=== PATIENT | female | born 1980 | race Caucasian/White ===

== ENCOUNTER 2018-07-11 10:17 | Emergency (ER) | payer MEDICAID ==
[~2018-07-11] VITALS: Ht 160 cm; Wt 76.2 kg
[2018-07-11] MEDS ORDERED: LACTATED RINGERS 1,000 ML IV ONE (10:33)
--- NOTE | 2018-07-11 10:44 | ED Psychosocial ---
General Chief Complaint: Substance Abuse Stated Complaint: DRUG/ALCOHOL ABUSE Source: patient Exam Limitations: no limitations (JINNY LEDESMA MD) History of Present Illness Date Seen by Provider: Jul 11, 2018 Time Seen by Provider: 10:26 Initial Comments Here with report of alcohol and drug abuse and needing medical clearance for the addiction treatment center. Apparently she was clean for 130 days but started drinking last Monday and then has used methamphetamine and hydrocodone. Last use of drugs was yesterday. Last alcohol intake was this morning with 1 pint of whiskey. [facility] helping get her into the addiction treatment service program but needed medical clearance. Denies other injuries otherwise or other concerns. Timing/Duration: week, getting worse Severity: moderate, severe Associated Symptoms: anxiety (JINNY LEDESMA MD) Allergies and Home Medications Allergies Coded Allergies: Sulfa (Sulfonamide Antibiotics) (Verified Allergy, Unknown, 07/11/18) Patient Home Medication List Home Medication List Reviewed: Yes (JINNY LEDESMA MD) Review of Systems Constitutional: see HPI; No chills, No fever EENTM: no symptoms reported Respiratory: no symptoms reported Cardiovascular: No edema, No palpitations Gastrointestinal: No abdominal pain, No nausea, No vomiting Genitourinary: no symptoms reported Musculoskeletal: no symptoms reported Psychiatric/Neurological: See HPI, Anxiety, Emotional Problems (JINNY LEDESMA MD) Past Mlwdvpg-Tlsdzr-Vvbmpt Hx Past Med/Social Hx: Reviewed Nursing Past Med/Soc Hx (JINNY LEDESMA MD) Patient Social History Alcohol Use: Regular Use Alcohol Beverage of Choice: Whiskey Recreational Drug Use: Yes (methamphetamine and hydrocodone) Smoking Status: Current Everyday Smoker Recent Foreign Travel: No Contact w/Someone Who Travel: No (JINNY LEDESMA MD) Past Medical History Surgeries: Yes Orthopedic (brain injury/hematoma) Respiratory: No Cardiac: Yes Hypertension Reproductive Disorders: No Gastrointestinal: No Musculoskeletal: Yes Fractures Psychosocial: Yes Bipolar (JINNY LEDESMA MD) Family Medical History Reviewed and Corrections made (JINNY LEDESMA MD) Physical Exam Vital Signs - First Documented 07/11/18 10:24 Temp 97.1 Pulse 113 Resp 18 B/P (MAP) 171/114 (133) Pulse Ox 97 (CHIKA GODDARD APRN) Capillary Refill : (JINNY LEDESMA MD) Height, Weight, BMI Height: 5'3" Weight: 160lbs. oz. [id number]; BMI Method:Stated General Appearance: WD/WN, other (anxious) HEENT: PERRL/EOMI, pharynx normal Neck: full range of motion, supple Respiratory: lungs clear, normal breath sounds Cardiovascular: no murmur, tachycardia Gastrointestinal: non tender, soft Extremities: non-tender, normal inspection Neurologic/Psychiatric: alert, oriented x 3 Appearance/Memory: appropriate appearance, appropriate insight Behavior/Eye Contact: cooperative, good eye contact, normal speech Thoughts/Hallucinations: normal thought pattern, no apparent hallucination Skin: normal color, warm/dry (JINNY LEDESMA MD) Progress/Results/Core Measures Results/Orders Lab Results Laboratory Tests Test 07/11/18 10:39 07/11/18 11:06 07/11/18 12:45 Range/Units White Blood Count 12.8 H 4.3-11.0 10^3/uL Red Blood Count 4.06 L 4.35-5.85 10^6/uL Hemoglobin 12.7 11.5-16.0 G/DL Hematocrit 37 35-52 % Mean Corpuscular Volume 91 80-99 FL Mean Corpuscular Hemoglobin 31 25-34 PG Mean Corpuscular Hemoglobin Concent 35 32-36 G/DL Red Cell Distribution Width 15.2 H 10.0-14.5 % Platelet Count 540 H 130-400 10^3/uL Mean Platelet Volume 10.4 7.4-10.4 FL Neutrophils (%) (Auto) 43 42-75 % Lymphocytes (%) (Auto) 49 H 12-44 % Monocytes (%) (Auto) 7 0-12 % Eosinophils (%) (Auto) 1 0-10 % Basophils (%) (Auto) 1 0-10 % Neutrophils # (Auto) 5.5 1.8-7.8 X 10^3 Lymphocytes # (Auto) 6.3 H 1.0-4.0 X 10^3 Monocytes # (Auto) 0.8 0.0-1.0 X 10^3 Eosinophils # (Auto) 0.1 0.0-0.3 10^3/uL Basophils # (Auto) 0.1 0.0-0.1 10^3/uL Sodium Level 142 135-145 MMOL/L Potassium Level 3.3 L 3.6-5.0 MMOL/L Chloride Level 108 H 98-107 MMOL/L Carbon Dioxide Level 20 L 21-32 MMOL/L Anion Gap 14 5-14 MMOL/L Blood Urea Nitrogen 12 7-18 MG/DL Creatinine 0.76 0.60-1.30 MG/DL Estimat Glomerular Filtration Rate > 60 BUN/Creatinine Ratio 16 Glucose Level 92 70-105 MG/DL Calcium Level 9.3 8.5-10.1 MG/DL Corrected Calcium 9.0 8.5-10.1 MG/DL Total Bilirubin 0.4 0.1-1.0 MG/DL Aspartate Amino Transf (AST/SGOT) 22 5-34 U/L Alanine Aminotransferase (ALT/SGPT) 24 0-55 U/L Alkaline Phosphatase 64 40-136 U/L Total Protein 7.3 6.4-8.2 GM/DL Albumin 4.4 3.2-4.5 GM/DL Thyroid Stimulating Hormone (TSH) 0.99 0.35-4.94 UIU/ML Serum Test, Qualitative NEGATIVE NEGATIVE Salicylates Level < 5.0 L 5.0-20.0 MG/DL Acetaminophen Level < 10 L 10-30 UG/ML Serum Alcohol 197 H <10 MG/DL Urine Color YELLOW Urine Clarity CLEAR Urine pH 5 5-9 Urine Specific [place] 1.015 L 1.016-1.022 Urine Protein NEGATIVE NEGATIVE Urine Glucose (UA) NEGATIVE NEGATIVE Urine Ketones NEGATIVE NEGATIVE Urine Nitrite NEGATIVE NEGATIVE Urine Bilirubin NEGATIVE NEGATIVE Urine Urobilinogen NORMAL NORMAL MG/DL Urine Leukocyte Esterase NEGATIVE NEGATIVE Urine RBC (Auto) NEGATIVE NEGATIVE Urine RBC NONE /HPF Urine WBC NONE /HPF Urine Squamous Epithelial Cells 5-10 /HPF Urine Crystals NONE /LPF Urine Bacteria TRACE /HPF Urine Casts NONE /LPF Urine Mucus NEGATIVE /LPF Urine Culture Indicated NO Urine Opiates Screen NEGATIVE NEGATIVE Urine Oxycodone Screen NEGATIVE NEGATIVE Urine Methadone Screen NEGATIVE NEGATIVE Urine Propoxyphene Screen NEGATIVE NEGATIVE Urine Barbiturates Screen NEGATIVE NEGATIVE Ur Tricyclic Antidepressants Screen NEGATIVE NEGATIVE Urine Phencyclidine Screen NEGATIVE NEGATIVE Urine Amphetamines Screen POSITIVE H NEGATIVE Urine Methamphetamines Screen POSITIVE H NEGATIVE Urine Benzodiazepines Screen NEGATIVE NEGATIVE Urine Cocaine Screen NEGATIVE NEGATIVE Urine Cannabinoids Screen NEGATIVE NEGATIVE (CHIKA GODDARD APRN) Medications Given in ED Current Medications Medications Dose Ordered Sig/Ramos Route Start Time Stop Time Status Last Admin Dose Admin Hydrochlorothiazide 12.5 mg ONCE ONCE PO 07/11/18 11:30 07/11/18 11:31 DC 07/11/18 11:41 12.5 MG Lactated Ringer's 1,000 ml @ 0 mls/hr Q0M ONCE IV 07/11/18 10:33 07/11/18 10:35 DC 07/11/18 11:14 0 MLS/HR Lisinopril 10 mg ONCE ONCE PO 07/11/18 11:30 07/11/18 11:31 DC 07/11/18 11:41 10 MG (CHIKA GODDARD APRN) Vital Signs/I&O 07/11/18 07/11/18 10:24 11:45 Temp 97.1 Pulse 113 105 Resp 18 B/P (MAP) 171/114 (133) 144/113 (123) Pulse Ox 97 (CHIKA GODDARD APRN) Progress Progress Note : Progress Note Seen and evaluated. IV, labs, UA, EKG and normal saline 1 L bolus ordered. (JINNY LEDESMA MD) Initial ECG Impression Date: Jul 11, 2018 Initial ECG Impression Time: 10:52 Initial ECG Rate: 94 Initial ECG Rhythm: Normal Sinus Initial ECG Impression: Normal Initial ECG Comparisson: No Previous ECG Available Comment Sinus rhythm with normal axis. No evidence of ST elevation CT. No previous available for comparison. Interpreted by me. (JINNY LEDESMA MD) Departure Impression Primary Impression: Alcoholism Disposition: 01 HOME, SELF-CARE Condition: Stable Departure-Patient Inst. Decision time for Depature: 13:25 (CHIKA GODDARD APRN) Referrals: LEA ANNE APRN (PCP) Primary Care Physician [facility] (Family) Primary Care Physician Patient Instructions: ALCOHOL AND SUBSTANCE ABUSE Add. Discharge Instructions: 1. Continue with treatment plan at the addiction treatment Center. All discharge instructions reviewed with patient and/or family. Voiced understanding. JINNY LEDESMA MD Jul 11, 2018 10:43 CHIKA GODDARD APRN Jul 11, 2018 13:26
[2018-07-11 10:50] LABS: BASOPHILS # (AUTO) 0.1 10^3/uL (0.0-0.1); BASOPHILS % (AUTO) 1 % (0-10); EOSINOPHILS # (AUTO) 0.1 10^3/uL (0.0-0.3); EOSINOPHILS % (AUTO) 1 % (0-10); HEMATOCRIT 37 % (35-52); HEMOGLOBIN 12.7 G/DL (11.5-16.0); LYMPHOCYTES # (AUTO) 6.3 X 10^3 (1.0-4.0); LYMPHOCYTES % (AUTO) 49 % (12-44); MEAN CORPUSCULAR HEMOGLOBIN 31 PG (25-34); MEAN CORPUSCULAR HGB CONC 35 G/DL (32-36); MEAN CORPUSCULAR VOLUME 91 FL (80-99); MEAN PLATELET VOLUME 10.4 FL (7.4-10.4); MONOCYTES # (AUTO) 0.8 X 10^3 (0.0-1.0); MONOCYTES % (AUTO) 7 % (0-12); NEUTROPHILS # (AUTO) 5.5 X 10^3 (1.8-7.8); NEUTROPHILS % (AUTO) 43 % (42-75); PLATELET COUNT 540 10^3/uL (130-400); RED CELL DISTRIBUTION WIDTH 15.2 % (10.0-14.5); WHITE BLOOD COUNT 12.8 10^3/uL (4.3-11.0)
[2018-07-11] MEDS ORDERED: CETIRIZINE 10 MG (11:29)
[2018-07-11] MEDS ORDERED: TRAZODONE TAB 100MG (11:29)
[2018-07-11] MEDS ORDERED: TABL (11:29)
[2018-07-11] MEDS ORDERED: LISINOPRIL HCTZ (11:29)
[2018-07-11] MEDS ORDERED: ESCITALOPRAM 20 MG (11:29)
[2018-07-11] MEDS ORDERED: lisINopril 10 MG (PRINIVIL) TABLET PO ONE (11:30)
[2018-07-11] MEDS ORDERED: HYDROCHLOROTHIAZIDE 12.5 MG (HCTZ) CAP PO ONE (11:30)
[2018-07-11 11:40] LABS: ALANINE AMINOTRANSFERASE 24 U/L (0-55); ALBUMIN 4.4 GM/DL (3.2-4.5); ALKALINE PHOSPHATASE 64 U/L (40-136); BILIRUBIN,TOTAL 0.4 MG/DL (0.1-1.0); BUN/CREATININE RATIO 16; CALCIUM 9.3 MG/DL (8.5-10.1); CARBON DIOXIDE 20 MMOL/L (21-32); CHLORIDE 108 MMOL/L (98-107); CREATININE SERUM 0.76 MG/DL (0.60-1.30); GFR ESTIMATED > 60; GLUCOSE 92 MG/DL (70-105); POTASSIUM 3.3 MMOL/L (3.6-5.0); SALICYLATE < 5.0 MG/DL (5.0-20.0); SODIUM 142 MMOL/L (135-145); TOTAL PROTEIN 7.3 GM/DL (6.4-8.2)
[2018-07-11 11:45] VITALS: BP 144/113
[2018-07-11 11:46] LABS: ACETAMINOPHEN < 10 UG/ML (10-30)
[2018-07-11 13:00] LABS: BILIRUBIN,URINE NEGATIVE (NEGATIVE); CLARITY,URINE CLEAR; COLOR,URINE YELLOW; GLUCOSE, URINE (UA) NEGATIVE (NEGATIVE); KETONES,URINE NEGATIVE (NEGATIVE); LEUKOCYTE ESTERASE ,URINE NEGATIVE (NEGATIVE); NITRITE,URINE NEGATIVE (NEGATIVE); PH,URINE 5 (5-9); PROTEIN,URINE NEGATIVE (NEGATIVE); UROBILINOGEN,URINE NORMAL (NORMAL)
[2018-07-11 13:09] LABS: BACTERIA,URINE TRACE /HPF
[2018-07-11 13:13] LABS: AMPHETAMINE SCREEN, URINE POSITIVE (NEGATIVE); BARBITURATE SCREEN URINE NEGATIVE (NEGATIVE); BENZODIAZEPINES SCREEN URINE NEGATIVE (NEGATIVE); CANNABINOID SCREEN, URINE NEGATIVE (NEGATIVE); COCAINE SCREEN URINE NEGATIVE (NEGATIVE); METHADONE STAT NEGATIVE (NEGATIVE); METHAMPHETAMINE SCREEN URINE S POSITIVE (NEGATIVE); OPIATE SCREEN URINE NEGATIVE (NEGATIVE); OXYCODONE STAT NEGATIVE (NEGATIVE); PROPOXYPHENE STAT NEGATIVE (NEGATIVE); TRICYCLIC ANTIDEPRESSANTS SCRE NEGATIVE (NEGATIVE)
[2018-07-11 13:32] VITALS: BP 132/87
== END 2018-07-11 13:32 | disposition home or self-care (01) ==
LOC: EDUNIT# 10:17 → ER 10:18
DX: F10.20 Alcohol dependence, uncomplicated (principal); I10 Essential (primary) hypertension; F31.9 Bipolar disorder, unspecified; F15.10 Other stimulant abuse, uncomplicated; F17.210 Nicotine dependence, cigarettes, uncomplicated; Z87.820 Personal history of traumatic brain injury; Z88.2 Allergy status to sulfonamides
CPT/HCPCS: 36415; 80053; 80306; 80320; 80329; 81000; 84443; 84703; 85025; 93005; 93041

== ENCOUNTER 2018-08-09 22:42 | Observation (INO) | payer MEDICAID | END 2018-08-12 12:50 | disposition home or self-care (01) | LOC: ICU 08-10 02:45 → ER 22:42 → 4TH 08-10 07:59 ==

== ENCOUNTER 2018-09-27 18:34 | Emergency (ER) | payer MEDICAID, OTHER ==
[~2018-09-27] VITALS: Ht 160 cm; Wt 72.6 kg
[~2018-09-27 18:34] MED LIST: ALBU18HF2 INH; CETI10TA17 PO; CETIRIZINE 10 MG; ESCI20TA45 PO; ESCITALOPRAM 20 MG; HYDR50TA76 PO; LISI1TAB6 PO; LISINOPRIL HCTZ; TABL; TRAZ-190 PO; TRAZODONE TAB 100MG
[2018-09-27] MEDS ORDERED: NS IV 1000 ML 1,000 ML IV SCH (18:45)
[2018-09-27 19:00] LABS: BASOPHILS % (AUTO) 0 % (0-10); EOSINOPHILS # (AUTO) 0.2 10^3/uL (0.0-0.3); EOSINOPHILS % (AUTO) 2 % (0-10); HEMATOCRIT 34 % (35-52); HEMOGLOBIN 11.1 G/DL (11.5-16.0); LYMPHOCYTES # (AUTO) 2.8 X 10^3 (1.0-4.0); LYMPHOCYTES % (AUTO) 34 % (12-44); MEAN CORPUSCULAR HEMOGLOBIN 29 PG (25-34); MEAN CORPUSCULAR HGB CONC 32 G/DL (32-36); MEAN CORPUSCULAR VOLUME 90 FL (80-99); MEAN PLATELET VOLUME 9.5 FL (7.4-10.4); MONOCYTES # (AUTO) 0.9 X 10^3 (0.0-1.0); MONOCYTES % (AUTO) 11 % (0-12); NEUTROPHILS # (AUTO) 4.3 X 10^3 (1.8-7.8); NEUTROPHILS % (AUTO) 52 % (42-75); PLATELET COUNT 333 10^3/uL (130-400); RED CELL DISTRIBUTION WIDTH 16.2 % (10.0-14.5); WHITE BLOOD COUNT 8.2 10^3/uL (4.3-11.0)
[2018-09-27 19:20] LABS: BILIRUBIN,URINE NEGATIVE (NEGATIVE); CLARITY,URINE CLEAR; COLOR,URINE YELLOW; GLUCOSE, URINE (UA) NEGATIVE (NEGATIVE); KETONES,URINE NEGATIVE (NEGATIVE); LEUKOCYTE ESTERASE ,URINE 1+ (NEGATIVE); NITRITE,URINE NEGATIVE (NEGATIVE); PH,URINE 7 (5-9); PROTEIN,URINE NEGATIVE (NEGATIVE); UROBILINOGEN,URINE NORMAL (NORMAL)
[2018-09-27 19:25] LABS: ALANINE AMINOTRANSFERASE 17 U/L (0-55); BILIRUBIN,TOTAL 0.2 MG/DL (0.1-1.0); BUN/CREATININE RATIO 15; CALCIUM 8.9 MG/DL (8.5-10.1); CARBON DIOXIDE 23 MMOL/L (21-32); CHLORIDE 105 MMOL/L (98-107); CREATININE SERUM 0.74 MG/DL (0.60-1.30); GFR ESTIMATED > 60; GLUCOSE 92 MG/DL (70-105); SALICYLATE < 5.0 MG/DL (5.0-20.0); SODIUM 139 MMOL/L (135-145); TOTAL PROTEIN 6.6 GM/DL (6.4-8.2)
[2018-09-27 19:27] LABS: ACETAMINOPHEN < 10 UG/ML (10-30)
[2018-09-27 19:30] LABS: WBC,URINE 0-2 /HPF
[2018-09-27 19:31] LABS: BACTERIA,URINE TRACE /HPF
[2018-09-27 19:36] LABS: AMPHETAMINE SCREEN, URINE POSITIVE (NEGATIVE); BARBITURATE SCREEN URINE NEGATIVE (NEGATIVE); BENZODIAZEPINES SCREEN URINE NEGATIVE (NEGATIVE); CANNABINOID SCREEN, URINE NEGATIVE (NEGATIVE); METHADONE STAT NEGATIVE (NEGATIVE); OPIATE SCREEN URINE NEGATIVE (NEGATIVE); OXYCODONE STAT NEGATIVE (NEGATIVE); PROPOXYPHENE STAT NEGATIVE (NEGATIVE); TRICYCLIC ANTIDEPRESSANTS SCRE NEGATIVE (NEGATIVE)
[2018-09-27 19:37] LABS: COCAINE SCREEN URINE NEGATIVE (NEGATIVE); METHAMPHETAMINE SCREEN URINE S POSITIVE (NEGATIVE)
[2018-09-27 19:37] LABS: ALKALINE PHOSPHATASE 81 U/L (40-136)
--- NOTE | 2018-09-27 19:43 | ED Psychosocial ---
General Chief Complaint: Substance Abuse Stated Complaint: WITHDRAWL Nursing Triage Note: pt verbalized sweaty and shakey. states usually drinks 2 pints of vodka a day, states drank half pint vodka today Source: patient Exam Limitations: no limitations History of Present Illness Date Seen by Provider: Sep 27, 2018 Time Seen by Provider: 18:40 Initial Comments 37-year-old female who was brought to the emergency room by [facility] for complaints of withdrawing off of vodka. She reports that she normally drinks 2 pints of vodka per day but has only drank half a pint today. She reports for the past week she's been having thoughts of suicide drinking heavily but ran out of vodka today and reports that she started to become shaky and sweating. She denies having a plan to end her life but reports that she has a long history of mental health, stopped taking her Lexapro, reports that she's tried to cut her wrists in the past. Timing/Duration: just prior to arrival Associated Symptoms: suicidal ideation Allergies and Home Medications Allergies Coded Allergies: Sulfa (Sulfonamide Antibiotics) (Verified Allergy, Unknown, 09/27/18) Patient Home Medication List Home Medication List Reviewed: Yes Review of Systems Constitutional: see HPI; No chills, No fever Psychiatric/Neurological: See HPI, Emotional Problems All Other Systems Reviewed Negative Unless Noted: Yes Past Nyznmed-Vfdilz-Axlnbf Hx Past Med/Social Hx: Reviewed Nursing Past Med/Soc Hx Patient Social History Recent Foreign Travel: No Contact w/Someone Who Travel: No Recent Infectious Disease Expo: No Family Medical History Reviewed Nursing Family Hx Physical Exam Vital Signs - First Documented 09/27/18 18:39 Temp 98.0 Pulse 117 Resp 18 B/P (MAP) 118/110 (113) Pulse Ox 98 O2 Delivery Room Air Capillary Refill : Less Than 3 Seconds Height, Weight, BMI Height: 5'3.00" Weight: 160lbs. oz. [id number]; BMI Method:Stated General Appearance: WD/WN, no apparent distress HEENT: PERRL/EOMI, normal ENT inspection, TMs normal, pharynx normal Respiratory: chest non-tender, lungs clear, normal breath sounds, no respiratory distress, no accessory muscle use, respiratory distress Cardiovascular: normal peripheral pulses, regular rate, rhythm, no edema, no gallop, no JVD, no murmur Extremities: normal capillary refill Neurologic/Psychiatric: alert, normal mood/affect, oriented x 3 Appearance/Memory: appropriate appearance, appropriate insight, neat Behavior/Eye Contact: cooperative, good eye contact, normal speech Thoughts/Hallucinations: normal thought pattern, no apparent hallucination Skin: normal color, warm/dry Progress/Results/Core Measures Results/Orders Lab Results Laboratory Tests Test 09/27/18 18:50 09/27/18 19:15 Range/Units White Blood Count 8.2 4.3-11.0 10^3/uL Red Blood Count 3.80 L 4.35-5.85 10^6/uL Hemoglobin 11.1 L 11.5-16.0 G/DL Hematocrit 34 L 35-52 % Mean Corpuscular Volume 90 80-99 FL Mean Corpuscular Hemoglobin 29 25-34 PG Mean Corpuscular Hemoglobin Concent 32 32-36 G/DL Red Cell Distribution Width 16.2 H 10.0-14.5 % Platelet Count 333 130-400 10^3/uL Mean Platelet Volume 9.5 7.4-10.4 FL Neutrophils (%) (Auto) 52 42-75 % Lymphocytes (%) (Auto) 34 12-44 % Monocytes (%) (Auto) 11 0-12 % Eosinophils (%) (Auto) 2 0-10 % Basophils (%) (Auto) 0 0-10 % Neutrophils # (Auto) 4.3 1.8-7.8 X 10^3 Lymphocytes # (Auto) 2.8 1.0-4.0 X 10^3 Monocytes # (Auto) 0.9 0.0-1.0 X 10^3 Eosinophils # (Auto) 0.2 0.0-0.3 10^3/uL Basophils # (Auto) 0.0 0.0-0.1 10^3/uL Sodium Level 139 135-145 MMOL/L Potassium Level 3.0 L 3.6-5.0 MMOL/L Chloride Level 105 98-107 MMOL/L Carbon Dioxide Level 23 21-32 MMOL/L Anion Gap 11 5-14 MMOL/L Blood Urea Nitrogen 11 7-18 MG/DL Creatinine 0.74 0.60-1.30 MG/DL Estimat Glomerular Filtration Rate > 60 BUN/Creatinine Ratio 15 Glucose Level 92 70-105 MG/DL Calcium Level 8.9 8.5-10.1 MG/DL Corrected Calcium 8.9 8.5-10.1 MG/DL Total Bilirubin 0.2 0.1-1.0 MG/DL Aspartate Amino Transf (AST/SGOT) 23 5-34 U/L Alanine Aminotransferase (ALT/SGPT) 17 0-55 U/L Alkaline Phosphatase 81 40-136 U/L Total Protein 6.6 6.4-8.2 GM/DL Albumin 4.0 3.2-4.5 GM/DL Salicylates Level < 5.0 L 5.0-20.0 MG/DL Acetaminophen Level < 10 L 10-30 UG/ML Serum Alcohol 17 H <10 MG/DL Urine Color YELLOW Urine Clarity CLEAR Urine pH 7 5-9 Urine Specific [place] 1.005 L 1.016-1.022 Urine Protein NEGATIVE NEGATIVE Urine Glucose (UA) NEGATIVE NEGATIVE Urine Ketones NEGATIVE NEGATIVE Urine Nitrite NEGATIVE NEGATIVE Urine Bilirubin NEGATIVE NEGATIVE Urine Urobilinogen NORMAL NORMAL MG/DL Urine Leukocyte Esterase 1+ H NEGATIVE Urine RBC (Auto) 5+ H NEGATIVE Urine RBC NONE /HPF Urine WBC 0-2 /HPF Urine Squamous Epithelial Cells 2-5 /HPF Urine Crystals NONE /LPF Urine Bacteria TRACE /HPF Urine Casts NONE /LPF Urine Mucus NEGATIVE /LPF Urine Culture Indicated NO Urine Test NEGATIVE NEGATIVE Urine Opiates Screen NEGATIVE NEGATIVE Urine Oxycodone Screen NEGATIVE NEGATIVE Urine Methadone Screen NEGATIVE NEGATIVE Urine Propoxyphene Screen NEGATIVE NEGATIVE Urine Barbiturates Screen NEGATIVE NEGATIVE Ur Tricyclic Antidepressants Screen NEGATIVE NEGATIVE Urine Phencyclidine Screen NEGATIVE NEGATIVE Urine Amphetamines Screen POSITIVE H NEGATIVE Urine Methamphetamines Screen POSITIVE H NEGATIVE Urine Benzodiazepines Screen NEGATIVE NEGATIVE Urine Cocaine Screen NEGATIVE NEGATIVE Urine Cannabinoids Screen NEGATIVE NEGATIVE My Orders Orders - SERGIO KILLIAN Ua Culture If Indicated (09/27/18 18:43) Cbc With Automated Diff (09/27/18 18:43) Comprehensive Metabolic Panel (09/27/18 18:43) Alcohol (09/27/18 18:43) Drug Screen Stat (Urine) (09/27/18 18:43) Acetaminophen (09/27/18 18:43) Salicylate (09/27/18 18:43) Ekg Tracing (09/27/18 18:43) Ed Iv/Invasive Line Start (09/27/18 18:43) Monitor-Rhythm Ecg Trace Only (09/27/18 18:43) Ed Iv/Invasive Line Start (09/27/18 18:43) Ns Iv 1000 Ml (Sodium Chloride 0.9%) (09/27/18 18:45) Hcg,Qualitative Urine (09/27/18 20:04) Lisinopril Tablet (Zestril Tablet) (09/27/18 20:45) Hydroxyzine Cap/Tab (Vistaril) (09/27/18 20:45) Lisinopril Tablet (Zestril Tablet) (09/27/18 20:39) Medications Given in ED Current Medications Medications Dose Ordered Sig/Ramos Route Start Time Stop Time Status Last Admin Dose Admin Hydroxyzine [place] 50 mg ONCE ONCE PO 09/27/18 20:45 09/27/18 20:46 DC 09/27/18 20:48 50 MG Lisinopril 20 mg ONCE ONCE PO 09/27/18 20:45 09/27/18 20:46 DC 09/27/18 20:48 20 MG Vital Signs/I&O 09/27/18 18:39 Temp 98.0 Pulse 117 Resp 18 B/P (MAP) 118/110 (113) Pulse Ox 98 O2 Delivery Room Air Blood Pressure Mean: 113 Departure Impression Primary Impression: Alcohol abuse Additional Impression: Suicidal ideation Disposition: 65 XFER TO PSYCH HOSP/UNIT Condition: Stable Transfer Time Spoke to Accepting Phy: 21:30 Transfer Progress Notes Discussed the case with Dr. Astudillo from [facility] in [place] and he agrees to accept the patient at this time. Transfer Time: 21:46 Transfer Facility: [facility] Method of Transfer: EMS ([facility]) Departure-Patient Inst. Patient Instructions: ALCOHOL AND SUBSTANCE ABUSE SERGIO KILLIAN Sep 27, 2018 19:43
[2018-09-27] MEDS ORDERED: lisINopril 10 MG (PRINIVIL) TABLET ONE (20:39)
[2018-09-27] MEDS ORDERED: lisINopril 20 MG (PRINIVIL) TABLET PO ONE (20:45)
[2018-09-27] MEDS ORDERED: hydrOXYzine (VISTARIL/ATARAX) 25 MG capsule/tablet PO ONE (20:45)
[2018-09-28 00:20] VITALS: BP 133/104
== END 2018-09-28 00:20 ==
LOC: ER 18:38 → MERGE 18:38 → ER 09-28 00:20
DX: F10.10 Alcohol abuse, uncomplicated (principal); R45.851 Suicidal ideations; Z88.2 Allergy status to sulfonamides; Y90.0 Blood alcohol level of less than 20 mg/100 ml
CPT/HCPCS: 36415; 80053; 80306; 80320; 80329; 81000; 84703; 85025; 93005; 96360

== ENCOUNTER 2018-10-26 22:48 | Emergency (ER) | payer MEDICAID ==
[~2018-10-26] VITALS: Ht 160 cm; Wt 86.2 kg
[2018-10-26] MEDS ORDERED: NS IV 1000 ML 1,000 ML IV SCH (22:53)
[2018-10-26 23:03] LABS: BASOPHILS % (AUTO) 0 % (0-10); EOSINOPHILS # (AUTO) 0.2 10^3/uL (0.0-0.3); EOSINOPHILS % (AUTO) 1 % (0-10); HEMATOCRIT 36 % (35-52); HEMOGLOBIN 11.6 G/DL (11.5-16.0); LYMPHOCYTES # (AUTO) 5.4 X 10^3 (1.0-4.0); LYMPHOCYTES % (AUTO) 30 % (12-44); MEAN CORPUSCULAR HEMOGLOBIN 30 PG (25-34); MEAN CORPUSCULAR HGB CONC 33 G/DL (32-36); MEAN CORPUSCULAR VOLUME 91 FL (80-99); MEAN PLATELET VOLUME 9.7 FL (7.4-10.4); MONOCYTES # (AUTO) 1.5 X 10^3 (0.0-1.0); MONOCYTES % (AUTO) 9 % (0-12); NEUTROPHILS # (AUTO) 10.8 X 10^3 (1.8-7.8); NEUTROPHILS % (AUTO) 60 % (42-75); PLATELET COUNT 362 10^3/uL (130-400); RED CELL DISTRIBUTION WIDTH 17.9 % (10.0-14.5); WHITE BLOOD COUNT 17.9 10^3/uL (4.3-11.0)
--- NOTE | 2018-10-26 23:17 | NUR ---
Bryan SYED arrived at this time to follow up.
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
[2018-10-26 23:24] LABS: ALANINE AMINOTRANSFERASE 18 U/L (0-55); ALKALINE PHOSPHATASE 99 U/L (40-136); AMYLASE 44 U/L (25-125); BILIRUBIN,TOTAL 0.2 MG/DL (0.1-1.0); BUN/CREATININE RATIO 15; CALCIUM 8.6 MG/DL (8.5-10.1); CARBON DIOXIDE 18 MMOL/L (21-32); CHLORIDE 109 MMOL/L (98-107); CREATINE KINASE 109 U/L (29-168); CREATININE SERUM 0.67 MG/DL (0.60-1.30); GFR ESTIMATED > 60; GLUCOSE 85 MG/DL (70-105); LIPASE 13 U/L (8-78); POTASSIUM 3.6 MMOL/L (3.6-5.0); SALICYLATE < 5.0 MG/DL (5.0-20.0); SODIUM 143 MMOL/L (135-145); TOTAL PROTEIN 7.2 GM/DL (6.4-8.2)
[2018-10-26 23:26] LABS: ACETAMINOPHEN < 10 UG/ML (10-30)
[2018-10-27 00:24] LABS: BILIRUBIN,URINE NEGATIVE (NEGATIVE); CLARITY,URINE CLEAR; COLOR,URINE OTHER; GLUCOSE, URINE (UA) NEGATIVE (NEGATIVE); KETONES,URINE NEGATIVE (NEGATIVE); LEUKOCYTE ESTERASE ,URINE 2+ (NEGATIVE); NITRITE,URINE NEGATIVE (NEGATIVE); PH,URINE 6 (5-9); PROTEIN,URINE 2+ (NEGATIVE); UROBILINOGEN,URINE NORMAL (NORMAL)
[2018-10-27 00:27] LABS: AMPHETAMINE SCREEN, URINE POSITIVE (NEGATIVE); BARBITURATE SCREEN URINE NEGATIVE (NEGATIVE); BENZODIAZEPINES SCREEN URINE POSITIVE (NEGATIVE); CANNABINOID SCREEN, URINE NEGATIVE (NEGATIVE); COCAINE SCREEN URINE NEGATIVE (NEGATIVE); METHADONE STAT NEGATIVE (NEGATIVE); METHAMPHETAMINE SCREEN URINE S POSITIVE (NEGATIVE); OPIATE SCREEN URINE NEGATIVE (NEGATIVE); OXYCODONE STAT NEGATIVE (NEGATIVE); PROPOXYPHENE STAT NEGATIVE (NEGATIVE); TRICYCLIC ANTIDEPRESSANTS SCRE NEGATIVE (NEGATIVE)
[2018-10-27 00:35] LABS: RBC,URINE 50-100 /HPF; WBC,URINE 25-50 /HPF
[2018-10-27 00:36] LABS: BACTERIA,URINE MODERATE /HPF
[2018-10-27 00:53] LABS: LYMPHOCYTES % (MANUAL) 30 %; MONOCYTES % (MANUAL) 6 %; NEUTROPHILS % (MANUAL) 64 %
[2018-10-27] MEDS ORDERED: cefTRIAXone FOR IV USE 1,000 MG in WATER (STERILE) FOR INJECTION 10 ML IV ONE (01:00)
[2018-10-27] MEDS ORDERED: CEFD300C3 PO (01:15)
[2018-10-27] MEDS ORDERED: THIAMINE 100 MG/ML 2 ML (VITAMIN B-1) VIAL IV ONE (01:45)
[2018-10-27] MEDS ORDERED: FOLIC ACID 5MG/ML 10 ML IV ONE (01:45)
[2018-10-27] MEDS ORDERED: LACTATED RINGERS 1,000 ML IV SCH (01:45)
[2018-10-27] MEDS ORDERED: FOLIC ACID 1 MG TAB PO ONE (01:45)
[2018-10-27 02:36] VITALS: BP 114/85
== END 2018-10-27 02:36 | disposition home or self-care (01) ==
LOC: EDUNIT# 22:48 → ER 22:50
DX: N39.0 Urinary tract infection, site not specified (principal); F10.920 Alcohol use, unspecified with intoxication, uncomplicated; I10 Essential (primary) hypertension; F31.9 Bipolar disorder, unspecified; F60.9 Personality disorder, unspecified; Z88.2 Allergy status to sulfonamides; Z77.22 Contact with and (suspected) exposure to environmental tobacco smoke (acute) (chronic)
CPT/HCPCS: 36415; 80053; 80306; 80320; 80329; 81000; 82150; 82550; 83690; 84443; 85007; 85027; 87088; 93005; 93041; 96361; 96374; 96375

== ENCOUNTER 2019-04-07 08:30 | Emergency (ER) | payer MEDICAID ==
[~2019-04-07] VITALS: Ht 160 cm; Wt 72.7 kg
[~2019-04-07 08:30] MED LIST changes: +CEFD300C3 PO; +LISI1TAB29 PO; -LISI1TAB6 PO
[2019-04-07] MEDS ORDERED: LACTATED RINGERS 1,000 ML IV ONE ×2 (08:33→09:37)
[2019-04-07 09:11] LABS: BASOPHILS # (AUTO) 0.1 10^3/uL (0.0-0.1); BASOPHILS % (AUTO) 1 % (0-10); EOSINOPHILS # (AUTO) 0.1 10^3/uL (0.0-0.3); EOSINOPHILS % (AUTO) 1 % (0-10); HEMATOCRIT 39 % (35-52); HEMOGLOBIN 12.9 G/DL (11.5-16.0); LYMPHOCYTES # (AUTO) 2.5 X 10^3 (1.0-4.0); LYMPHOCYTES % (AUTO) 32 % (12-44); MEAN CORPUSCULAR HEMOGLOBIN 29 PG (25-34); MEAN CORPUSCULAR HGB CONC 33 G/DL (32-36); MEAN CORPUSCULAR VOLUME 88 FL (80-99); MEAN PLATELET VOLUME 9.3 FL (7.4-10.4); MONOCYTES # (AUTO) 0.9 X 10^3 (0.0-1.0); MONOCYTES % (AUTO) 11 % (0-12); NEUTROPHILS # (AUTO) 4.5 X 10^3 (1.8-7.8); NEUTROPHILS % (AUTO) 56 % (42-75); PLATELET COUNT 348 10^3/uL (130-400); RED CELL DISTRIBUTION WIDTH 15.1 % (10.0-14.5)
[2019-04-07 09:17] LABS: BILIRUBIN,URINE NEGATIVE (NEGATIVE); CLARITY,URINE CLEAR; COLOR,URINE YELLOW; GLUCOSE, URINE (UA) NEGATIVE (NEGATIVE); KETONES,URINE NEGATIVE (NEGATIVE); LEUKOCYTE ESTERASE ,URINE NEGATIVE (NEGATIVE); NITRITE,URINE NEGATIVE (NEGATIVE); PH,URINE 5.5 (5-9); PROTEIN,URINE NEGATIVE (NEGATIVE)
[2019-04-07 09:27] LABS: PROTHROMBIN TIME PATIENT 13.6 SEC (12.2-14.7)
[2019-04-07 09:31] LABS: BACTERIA,URINE FEW /HPF; RBC,URINE RARE /HPF; WBC,URINE RARE /HPF
[2019-04-07 09:34] LABS: AMPHETAMINE SCREEN, URINE POSITIVE (NEGATIVE); BARBITURATE SCREEN URINE NEGATIVE (NEGATIVE); BENZODIAZEPINES SCREEN URINE NEGATIVE (NEGATIVE); CANNABINOID SCREEN, URINE NEGATIVE (NEGATIVE); COCAINE SCREEN URINE NEGATIVE (NEGATIVE); METHADONE STAT NEGATIVE (NEGATIVE); METHAMPHETAMINE SCREEN URINE S POSITIVE (NEGATIVE); OPIATE SCREEN URINE NEGATIVE (NEGATIVE); OXYCODONE STAT NEGATIVE (NEGATIVE); PROPOXYPHENE STAT NEGATIVE (NEGATIVE); TRICYCLIC ANTIDEPRESSANTS SCRE NEGATIVE (NEGATIVE)
[2019-04-07 09:35] LABS: ALANINE AMINOTRANSFERASE 23 U/L (0-55); ALBUMIN 4.8 GM/DL (3.2-4.5); ALKALINE PHOSPHATASE 100 U/L (40-136); AMYLASE 37 U/L (25-125); BILIRUBIN,TOTAL 0.7 MG/DL (0.1-1.0); BUN/CREATININE RATIO 11; CALCIUM 9.9 MG/DL (8.5-10.1); CARBON DIOXIDE 18 MMOL/L (21-32); CHLORIDE 101 MMOL/L (98-107); CREATININE SERUM 0.76 MG/DL (0.60-1.30); GFR ESTIMATED > 60; GLUCOSE 92 MG/DL (70-105); LIPASE 11 U/L (8-78); MAGNESIUM 1.9 MG/DL (1.6-2.4); POTASSIUM 3.4 MMOL/L (3.6-5.0); SALICYLATE < 5.0 MG/DL (5.0-20.0); SODIUM 137 MMOL/L (135-145); TOTAL PROTEIN 8.1 GM/DL (6.4-8.2)
[2019-04-07 09:39] LABS: ACETAMINOPHEN < 10 UG/ML (10-30)
[2019-04-07] MEDS ORDERED: KCL 10 MEQ TAB (MICRO K) PO ONE (09:45)
[2019-04-07 09:54] LABS: TSH (THYROID ANALYZER) 1.99 UIU/ML (0.35-4.94)
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
[2019-04-07 11:10] VITALS: BP 154/88
== END 2019-04-07 11:10 | disposition home or self-care (01) ==
LOC: EDUNIT# 08:30 → ER 08:31
DX: F10.20 Alcohol dependence, uncomplicated (principal); F15.90 Other stimulant use, unspecified, uncomplicated; R44.3 Hallucinations, unspecified; E87.6 Hypokalemia; I10 Essential (primary) hypertension; F41.9 Anxiety disorder, unspecified; F31.9 Bipolar disorder, unspecified; F60.9 Personality disorder, unspecified; F17.210 Nicotine dependence, cigarettes, uncomplicated; Z87.820 Personal history of traumatic brain injury; Z90.89 Acquired absence of other organs; Z88.2 Allergy status to sulfonamides; Y90.6 Blood alcohol level of 120-199 mg/100 ml
CPT/HCPCS: 36415; 80053; 80306; 80320; 80329; 81000; 82150; 83690; 83735; 84443; 84703; 85025; 85610; 85730; 93005